=== PATIENT | male | born 1985 | race Caucasian/White ===

== ENCOUNTER 2021-04-12 21:48 | Emergency (ER) | payer SELFPAY ==
[~2021-04-12] VITALS: Ht 188 cm; Wt 83.9 kg
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
[2021-04-12] MEDS ORDERED: IBUPROFEN 400 MG TABLET ONE (22:29)
[2021-04-12] MEDS ORDERED: IBUPROFEN 400 MG TABLET PO ONE (22:30)
--- NOTE | 2021-04-12 22:48 | NUR ---
xray at bedside
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
--- NOTE | 2021-04-13 | NUR ---
Patient discharged to home in stable condition. Written and verbal after care instructions given. Patient verbalizes understanding of instruction. Pt ambulatory with a steady gait
[2021-04-13 00:12] VITALS: BP 131/82
== END 2021-04-13 | disposition home or self-care (01) ==
LOC: ER 21:54
DX: S83.8X1A Sprain of other specified parts of right knee, initial encounter (principal); S23.3XXA Sprain of ligaments of thoracic spine, initial encounter; S60.221A Contusion of right hand, initial encounter; S50.11XA Contusion of right forearm, initial encounter; S50.01XA Contusion of right elbow, initial encounter; V29.49XA Motorcycle driver injured in collision with other motor vehicles in traffic accident, initial encounter; Y93.I9 Activity, other involving external motion; Y92.89 Other specified places as the place of occurrence of the external cause; Y99.8 Other external cause status
CPT/HCPCS: 72074-TC; 73080-TC; 73090-TC; 73130-TC; 73564-TC

== ENCOUNTER 2021-04-15 14:37 | Emergency (ER) | payer SELFPAY ==
[~2021-04-15] VITALS: Ht 188 cm; Wt 81.6 kg
[2021-04-15 15:27] VITALS: BP 163/76
[2021-04-15] MEDS ORDERED: IBUP-1953 PO (17:20)
[2021-04-15] MEDS ORDERED: CYCL5TAB PO (17:22)
--- NOTE | 2021-04-15 17:42 | NUR ---
Patient discharged to home in stable condition. Written and verbal after care instructions given. Patient verbalizes understanding of instruction.
== END 2021-04-15 17:43 | disposition home or self-care (01) ==
LOC: ER 14:39
DX: S50.11XA Contusion of right forearm, initial encounter (principal); R10.11 Right upper quadrant pain; R51.9 Headache, unspecified; M25.521 Pain in right elbow; M25.561 Pain in right knee; R20.0 Anesthesia of skin; M54.2 Cervicalgia; M54.6 Pain in thoracic spine; Z60.2 Problems related to living alone; Z79.899 Other long term (current) drug therapy; V29.49XA Motorcycle driver injured in collision with other motor vehicles in traffic accident, initial encounter; Y93.55 Activity, bike riding; Y92.89 Other specified places as the place of occurrence of the external cause; Y99.8 Other external cause status
CPT/HCPCS: 76700-TC